=== PATIENT | female | born 1990 | race Caucasian/White ===

== ENCOUNTER 2018-02-06 18:03 | Emergency (ER) | payer OTHER, MEDICAID, SELFPAY ==
[2018-02-06 18:24] VITALS: BP 122/82; PULSE 82; RESP 20; TEMP 36.8; O2SAT 100; BMI 30.8
--- NOTE | 2018-02-06 21:03 | ED_ITS ---
HPI - Back Pain/Injury General Chief Complaint: Back Pain/Injury Stated Complaint: SEVERE NACK AND UPPER BACK PAIN Time Seen by Provider: 02/06/18 20:44 Source: patient Mode of arrival: ambulatory Limitations: no limitations History of Present Illness HPI Narrative: Patient is a 27-year-old female who presents with severe neck and right arm pain. She said she has had this happen in December they told her it was a muscle spasm she is a never fully got better. She woke up this morning and had severe pain. She denies any injury She does work as a physical therapy office. They tried stretching and tens unit on here without any relief. She has not taken any medication for it. She continues to have pain it is worse when she moves her right arm. She has not had fever or chills. She denies numbness or tingling in her extremities. Complaint: back pain Onset (ago): day(s) (1) Duration: constant Location: thoracic spine Severity: severe Related Data Home Medications Medication Instructions Recorded Confirmed IBUPROFEN (Motrin / Advil) 800 mg PO PRN #0 05/23/10 Previous Rx's Medication Instructions Recorded oseltamivir [Tamiflu] 75 mg PO BID #10 cap 04/27/17 diazepam [Valium] 5 mg PO Q12HR PRN #10 tab 02/06/18 Allergies Allergy/AdvReac Type Severity Reaction Status Date / Time human papillomavirus Allergy Severe ANAPHALACTIC Verified 02/06/18 18:29 vaccine, quadr SHOCK [From GARDASIL (PF)] Review of Systems Review of Systems All systems reviewed & are unremarkable except as noted in HPI and below Constitutional Denies chills, Denies fever(s), Denies lethargy and Denies weakness ENT Ears, Nose, Mouth, and Throat: Denies change in voice, Reports neck pain and Denies sore throat Cardiovascular Denies chest pain, Denies irregular heart rhythm, Denies lightheadedness, Denies palpitations, Denies dyspnea, Denies dyspnea on exertion and Denies orthopnea Respiratory Denies cough, Denies dyspnea, Denies dyspnea on exertion and Denies wheezing Gastrointestinal Gastrointestinal: Denies abdominal pain, Denies change in bowel habits, Denies diarrhea, Denies nausea and Denies vomiting Musculoskeletal Reports as per HPI, Denies muscle weakness, Reports neck pain, Reports radiating pain into limb and Reports tingling Integumentary/Breasts Denies pruritus, Denies erythema, Denies rash and Denies wounds Neurologic Reports tingling and Denies weakness Endocrine Denies palpitations Allergic/Immunologic Denies wheezing PFSH Medical History Healthy adult (Acute) Social History Smoking Status: Former smoker Exam Initial Vital Signs Initial Vital Signs: Vital Signs Temperature 98.3 F 02/06/18 18:24 Pulse Rate 82 02/06/18 18:24 Respiratory Rate 20 02/06/18 18:24 Blood Pressure 122/82 02/06/18 18:24 Pulse Oximetry 100 02/06/18 18:24 GENERAL: A curled in position on the left side tearful HEENT: Head atraumatic,EOMI, pupils reactive, no vertebral tenderness no step- offs is tender in paraspinal muscles and trapezius. Pain is reproduced while moving right arm CARDIOVASCULAR: Regular rate and rhythm without murmurs, rubs or gallops. RESPIRATORY: Breath sounds equal bilaterally, no wheezes rales or rhonchi. ABDOMEN: Soft, nontender. Normoactive bowel sounds all 4 quadrants. No guarding or rebound. EXTREMITIES: Normal range of motion, no clubbing or edema. Neurovascularly intact NEUROLOGICAL: Alert and oriented x4.Normal gait and speech. Analysis Or Research Safety Inspector strength equal bilaterally SKIN: Warm, dry, no laceration, no petechiae, no rashes or lesions. Course Orders Ordered: Discontinued Medications Hydrocodone Bitart/Acetaminophen (Vicodin Prepack) 1 bottle MISC SEEINSTR ONE Stop: 02/06/18 22:22 Last Admin: 02/06/18 22:59 Dose: 1 bottle Diazepam (Valium) 5 mg PO NOW ONE Stop: 02/06/18 20:55 Last Admin: 02/06/18 21:06 Dose: 5 mg Ketorolac Tromethamine (Toradol) 60 mg IM NOW ONE Stop: 02/06/18 20:55 Last Admin: 02/06/18 21:07 Dose: 60 mg Vital Signs - 8 hr 02/06/18 23:02 Temperature 99.3 F Pulse Rate 81 Respiratory Rate 18 Blood Pressure [Left Arm] 124/80 Pulse Oximetry 100 MDM - Back Pain/Injury MDM Narrative Medical decision making narrative: Patient now sitting up after Toradol and Valium. Still saying that it is painful. Upset that nobody is finding out what is going on. tHis is been ongoing since the beginning of December. I recommend that she follow up with her primary care physician. I have explained to her that there is no imaging needed at this time. It clinically is a muscle spasm. 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 She is upset that she is still having significant pain. She is given a prepack of hydrocodone but not a prescription. Discharge Plan Departure Patient Disposition: Home Clinical Impression: Acute cervical myofascial strain Discharge Date/Time: 02/06/18 23:06 Interventions: ED Discharge Assessment Last Done: 02/06/18 23:04 Instructions: DI for Cervical Muscle Strain Activity Restrictions/Additional Instructions: *You have been diagnosed with cervical strain, muscle spasm *What to do: Increase activity as tolerated, like movement will help. Heating pad. Recommend physical therapy. At this time no further testing or imaging is indicated *Continue to take medications as directed -naproxen 500 mg twice a day if needed for pain, this is not recommended in -Valium 5 mg every 12 hr if needed for severe spasm this does cause drowsiness do not drive -Ames 1 tablet every 6 hr if needed for severe pain *Follow up with your primary care provider in 2-3 days *Return to ER if you should have numbness, tingling, increasing or any new, worsening or concerning symptoms Prescriptions: New diazepam [Valium] 5 mg tablet 5 mg PO Q12HR PRN (Reason: muscle spasm) Qty: 10 RF: 0 No Action IBUPROFEN (Motrin / Advil) 800 mg PO PRN Qty: 0 RF: 0 oseltamivir [Tamiflu] 75 MG capsule 75 mg PO BID Qty: 10 RF: 0 Referrals: Yasmin Paz ARNP [Non-Staff] -
[2018-02-06] MEDS: diazePAM 5 MG TABLET PO (21:06)
[2018-02-06] MEDS: KETOROLAC 60 MG/2 ML VIAL IM (21:07)
--- NOTE | 2018-02-06 21:23 | CM.MNRNOTE ---
Pt states pain in bilateral mid back up into base of skull. States she cannot turn her head. Intermittent numbness in her arms. Tearful during assessment. States she has been diagnosed with spastic muscle.
[2018-02-06] MEDS: HYDROCODONE/ACET 5/325 PREPACK 1 BOTTLE MISC (22:59)
[2018-02-06 23:02] VITALS: BP 124/80; PULSE 81; RESP 18; TEMP 37.4; O2SAT 100
== END 2018-02-06 23:06 | disposition home or self-care (01) ==
PROVIDERS: Emergency Provider Emergency Medicine
DX: S16.1XXA Strain of muscle, fascia and tendon at neck level, initial encounter (principal)
CPT/HCPCS: 96372; 99282; 99283; J1885

== ENCOUNTER → 2018-02-25 12:02 | Outpatient (CLI) | payer OTHER, MEDICAID, SELFPAY ==
--- NOTE | 2018-02-25 12:05 | DI.RAD.S_ITS ---
PROCEDURE: XR CERVICAL SPINE 4V OR 5V INDICATIONS: eval TECHNIQUE: 5 views of the cervical spine acquired. COMPARISON: [facility], , CERVICAL SPINE 2 OR 3 VIEWS, 05/23/2010, 19:20. FINDINGS: Bones: No fractures or dislocations to the C7 level. Minimal anterolisthesis of C4 on C5. Straightening of cervical curvature. Oblique images demonstrate mild right C3-C4 foraminal narrowing related to uncovertebral osteophyte. Soft tissues: No prevertebral soft tissue swelling. IMPRESSION: 1. Straightening of cervical curvature and minimal anterolisthesis of C4 on C5.. 2. Mild right C3-C4 foraminal stenosis. Dictated by: Jose Luis Rios M.D. on 02/25/2018 at 13:13 Approved by: Jose Luis Rios M.D. on 02/25/2018 at 13:17
== END ==
PROVIDERS: PCP Nurse Practitioner Gerontology; Visit Provider Physical Medicine & Rehabilitation
DX: M47.22 Other spondylosis with radiculopathy, cervical region (principal); M48.02 Spinal stenosis, cervical region; R51 Headache
CPT/HCPCS: 72050

== ENCOUNTER 2018-05-31 09:38 | Outpatient (CLI) | payer OTHER, MEDICAID, SELFPAY ==
[2018-05-31] VITALS (10 sets, daily range): BP systolic 103–115; BP diastolic 61–76; PULSE 74–94; RESP 16–18; TEMP 37.3; O2SAT 99–100
--- NOTE | 2018-05-31 09:44 | DI.RAD.S_ITS ---
PROCEDURE: PAIN C/T INTERLAMINAR INJECT INDICATIONS: SPONDYLOSIS FINDINGS: Fluoroscopic spot filming was performed to verify placement of spinal needles at the C6-C7 level(s), as labeled on the films. Appropriate location(s) of the needle tip(s) was confirmed by injection of iodinated contrast. IMPRESSION: Successful dorsal C6-C7 epidural needle tip localization for steroid injection through the interlaminar notch area. Dictated by: Walt Higgins M.D. on 05/31/2018 at 11:33 Approved by: Walt Higgins M.D. on 05/31/2018 at 11:34
[2018-05-31 10:30] LABS: Pregnancy Test Urine Negative (Negative)
[2018-05-31] MEDS: MIDAZOLAM 5 MG/5 ML VIAL IV (10:53)
[2018-05-31] MEDS: LIDOCAINE 1% 20 ML INJ 5 ML INJ (10:58)
[2018-05-31] MEDS: IOPAMIDOL 15 ML VIAL 3 ML INJ (10:58)
[2018-05-31] MEDS: DEXAMETHASONE 10 MG/ML VIAL 20 MG INJ (10:59)
--- NOTE | 2018-05-31 11:03 | PC.NURSE ---
ASSISTING PT OFF TABLE AND TRANSPORTING TO POST PROC AREA IN STABLE CONDITION
--- NOTE | 2018-05-31 11:14 | PM.PROC.1 ---
Procedures Date/Time Date of procedure: 05/31/18 Time of procedure: 11:14 General Procedure description: PREOP DIAGNOSIS 1. CERVICAL STENOSIS, 2. CERVICAL HNP WITH UPPER EXTREMITY RADICULAR FEATURES, POST OP DIAGNOSIS 1. CERVICAL STENOSIS, 2. CERVICAL HNP WITH UPPER EXTREMITY RADICULAR FEATURES, PROCEDURES 1. FLUORSCOPICALLY GUIDED CONTRAST CONTROLLED INTERLAMINAR EPIDURAL STEROID INJECTION - C6/7 TL DOMINIC PHYSICIAN: Jona Mejía, INDICATIONS Betty is referred by ENEDELIA Paz for treatment of Cervical HNP with Upper Extremity Paresthesias. FINDINGS Cervical Stenosis due to disc deterioration and nerve root irritation and nerve root irritation DESCRIPTION OF PROCEDURE Fluoroscopically guided, contrast-controlled C6/7 translaminar epidural steroid injection with conscious sedation. Following denial of allergy and review of potential side effects and complications, including, but not necessarily limited to, infection, allergic reaction, local tissue breakdown, temporary as well as permanent nerve injury, stroke, paralysis, and possible , the patient indicated that patient understood and agreed to proceed. An informed consent document was signed by the patient, witnessed by a nurse, and placed in the patient's chart. Additionally, other treatment options including modalities, medications, and physical therapy were reviewed with the patient. After review of previous anaesthesic history and IV conscious sedation the patient was deemed safe to proceed with todays procedure with IV conscious sedation as ASA class II designation. Safety time-out was performed to confirm patient ID, procedure to be performed and site of procedure. IV sedation was accomplished with a combination of 5mg of Versed administered by the RN after DO order, titrated to patient comfort during the course of the procedure while the patient remained responsive to all verbal commands. In the prone position, following sterile prep and drape of the cervical region, the C6/7 translaminar space was identified fluoroscopically. The skin was anesthetized via a 25-gauge 1.5-inch needle with 1% lidocaine solution. At this point, a 25-gauge, 2.5-inch short bevel spinal needle was atraumatically introduced and advanced under fluoroscopic guidance into epidural space at the C6/7 translaminar space. Depth was confirmed on lateral view. Radiological data, including multiple fluoroscopic views of the cervical spine, reveal a spinal needle at the C6/7 translaminar space. Lateral views then show placement of the needle in the epidural space. Subsequent views show contrast material flowing superiorly and inferiorly in the epidural space. DSA fluoroscopy with live contrast injection, once again, confirmed no vascular or intrathecal uptake. At this point, using loss of resistance technique with saline and air, the epidural space was entered. Following negative aspiration, injection of approximately 1.5 cc of Isovue-200 with live fluoroscopy in the AP view confirmed epidural flow in the epidural space without vascular or intrathecal uptake observed. Subsequently, a test dose of 1 cc of 1% lidocaine solution was injected and patient was observed for two minutes without signs or symptoms of complications, including abdominal pain, shortness of breath, bilateral upper or lower extremity weakness, nausea and vomiting, prior to steroid injection. At this point, 3 cc or 30 mg of dexamethasone was then injected without incident. The patient tolerated the procedure well without signs or symptoms of complications prior to being transferred to the recovery area for further monitoring, The patient was then transferred to the recovery area where they were observed for an appropriate period of time after the injection. The patient reported a VAS score of 6 prior to the procedure and a post-procedure VAS of 0. Total Fluoroscopy Time: 37.0 seconds Total Conscious Time: 24min POST OP INSTRUCTIONS The patient was provided a Pain Log to continue to record their response to the target-specific procedure prior to follow-up visit with the referring provider. Additionally, specific post-injection care instructions and a contact number to our office were provided if concerns arise regarding possible complications associated with the procedure are suspected. Jona Mejía DO Complications: none
--- NOTE | 2018-05-31 12:08 | PC.NURSE ---
pt returned from procedure room at 1110, pt a little groggy but awake enough to transfer from w/c to chair with stand by assist. Resumed monitoring from Kayleigh RAPP.
== END 2018-05-31 12:01 ==
LOC: RAD 09:43
PROVIDERS: PCP Nurse Practitioner Gerontology; Visit Provider Physical Medicine & Rehabilitation
DX: M48.02 Spinal stenosis, cervical region (principal); M50.123 Cervical disc disorder at C6-C7 level with radiculopathy
CPT/HCPCS: 62321; 81025; 99152; J1100; J2250